=== PATIENT | female | born 1960 | race Caucasian/White ===

== ENCOUNTER 2021-02-12 13:13 | Inpatient (IN) | payer OTHER ==
[2021-02-12 13:45] VITALS: BMI 28.1
[2021-02-12 15:29] LABS: EPI CELLS >36 /uL (0-25.1); HYALINE CASTS 2 /uL (0-3.1); URINE APPEARANCE CLEAR; URINE BACTERIA 226 /uL (0-1359); URINE BILIRUBIN NEGATIVE (NEGATIVE); URINE COLOR DK YELLOW; URINE GLUCOSE (UA) NEGATIVE (NEGATIVE); URINE KETONE NEGATIVE (NEGATIVE); URINE LEUK ESTERASE 2+ (NEGATIVE); URINE NITRITE NEGATIVE (NEGATIVE); URINE PROTEIN NEGATIVE (NEGATIVE); URINE RBC 13 /uL (0-23.9); URINE WBC 74 /uL (0-25.8)
[2021-02-12] MEDS ORDERED: DEXTROSE 5%-LACTATED RINGERS 1,000 ML IV SCH (16:15)
[2021-02-12 16:29] LABS: BASO % 0.3 % (0-2.0); EOS % 0.3 % (0-4.5); HEMATOCRIT 27.8 % (32.4-45.2); HEMOGLOBIN 9.4 GM/dL (10.7-15.3); LYMPH % 18.1 % (8-40); MCHC 33.7 g/dl (32.0-36.0); MEAN PLT VOLUME 7.4 fl (7.5-11.1); MONO % 10.8 % (3.8-10.2); NEUT % 70.5 % (42.8-82.8); PLATELET COUNT 262 K/MM3 (134-434); RBC 3.24 M/mm3 (3.60-5.2); RDW 14.1 % (11.6-15.6); WHITE BLOOD COUNT 5.6 K/mm3 (4.0-10.0)
[2021-02-12 16:36] LABS: INR 0.94 (0.83-1.09); PROTHROMBIN TIME (PATIENT) 11.6 SEC (9.7-13.0)
[2021-02-12 16:37] LABS: VENOUS BASE EXCESS -0.2 mmol/L (-2-2); VENOUS PCO2 40.5 mmHg (38-52); VENOUS PH 7.401 (7.310-7.410)
[2021-02-12 16:39] LABS: ACTIVATED PTT 30.1 SECONDS (25.2-36.5)
[2021-02-12 16:51] LABS: CHLORIDE 93 mmol/L (98-107); SODIUM 128 mmol/L (136-145)
[2021-02-12 16:54] LABS: ALBUMIN 2.6 g/dl (3.4-5.0); CALCIUM 7.9 mg/dL (8.5-10.1)
[2021-02-12 16:55] LABS: ANION GAP 9 MMOL/L (8-16); BLOOD UREA NITROGEN 14.2 mg/dL (7-18); CO2 27 mmol/L (21-32); GLUCOSE,RANDOM 65 mg/dL (74-106); MAGNESIUM 1.5 mg/dL (1.8-2.4)
[2021-02-12 16:57] LABS: SGPT/ALT 68 U/L (13-61)
[2021-02-12 16:58] LABS: CREATININE 0.8 mg/dL (0.55-1.3); SGOT/AST 162 U/L (15-37)
[2021-02-12 16:59] LABS: BILIRUBIN,TOTAL 1.2 mg/dL (0.2-1); TOT PROT 6.1 g/dl (6.4-8.2)
[2021-02-12 17:00] LABS: ALK PHOS 105 U/L (45-117)
[2021-02-12] MEDS ORDERED: CEFTRIAXONE 1 GM in DEXTROSE 5%-WATER - 100 ML IVPB ONE (17:10)
[2021-02-12] MEDS ORDERED: MAGNESIUM SULF 50% (8.12 MEQ/2 ML-1 GM VIAL) IVPB ONE (17:10)
[2021-02-12] MEDS ORDERED: THIAMINE HCL 200 MG/2 ML VIAL IVPB ONE (17:13)
[2021-02-12] MEDS ORDERED: CEFTRIAXONE 1 GM/50 ML BAG ONE (18:19)
[2021-02-12] MEDS ORDERED: THIAMINE HCL 200 MG/2 ML VIAL ONE ×2 (18:19→18:40)
[2021-02-12] MEDS ORDERED: MAGNESIUM 1GM/D5W - 1 GM/100 ML IVPB IVPB ONE (18:19)
[2021-02-12] MEDS ORDERED: ACETAMINOPHEN INJECTION 100 ML IVPB ONE (20:15)
[2021-02-12] MEDS ORDERED: ACETAMINOPHEN 1000 MG/100 ML VIAL (NON FORMULARY) IVPB ONE (20:15)
[2021-02-12] MEDS: DEXTROSE 5%-NORMAL SALINE 1,000 ML IV SCH (21:32)
[2021-02-12] MEDS ORDERED: LORazepam 1 MG TABLET PO PRN (22:31)
[2021-02-12] MEDS ORDERED: AZITHROMYCIN 250 MG TABLET PO ONE (22:42)
[2021-02-12] MEDS ORDERED: ALBUTEROL SO4 HFA INHALER IH PRN (22:45)
[2021-02-13] MEDS ORDERED: AZITHROMYCIN 250 MG TABLET ONE (00:17)
[2021-02-13 00:52] LABS: METHADONE, UR NEGATIVE ng/ml (CUTOFF=300); URINE AMPHETAMINES NEGATIVE ng/ml (CUTOFF=500); URINE BENZODIAZEPINES NEGATIVE ng/ml (CUTOFF=200)
[2021-02-13 00:53] LABS: OPIATES, URI NEGATIVE ng/ml (CUTOFF=300); PHENCYCLIDINE,URINE NEGATIVE ng/ml (CUTOFF=25)
[2021-02-13 01:00] LABS: COCAINE, UR NEGATIVE ng/ml (CUTOFF=300); URINE BARBITURATES NEGATIVE ng/ml (CUTOFF=200)
[2021-02-13] MEDS: INSULIN SLIDING SCALE (NOVOLOG) 1 VIAL SQ SCH ×4 (06:38→21:39)
[2021-02-13 07:14] LABS: EOS % 1.2 % (0-4.5); HEMATOCRIT 28.6 % (32.4-45.2); HEMOGLOBIN 9.6 GM/dL (10.7-15.3); LYMPH % 48.9 % (8-40); MCHC 33.5 g/dl (32.0-36.0); MEAN CELL VOLUME 86.5 fl (80-96); MEAN PLT VOLUME 6.7 fl (7.5-11.1); MONO % 13.9 % (3.8-10.2); PLATELET COUNT 220 K/MM3 (134-434); RBC 3.31 M/mm3 (3.60-5.2); WHITE BLOOD COUNT 3.7 K/mm3 (4.0-10.0)
[2021-02-13 07:36] LABS: ALBUMIN 2.4 g/dl (3.4-5.0); CALCIUM 7.9 mg/dL (8.5-10.1)
[2021-02-13 07:38] LABS: MAGNESIUM 1.6 mg/dL (1.8-2.4)
[2021-02-13 07:39] LABS: CREATININE 0.8 mg/dL (0.55-1.3); PHOSPHOROUS 3.3 mg/dL (2.5-4.9)
[2021-02-13 07:40] LABS: BILIRUBIN,TOTAL 0.7 mg/dL (0.2-1)
[2021-02-13 07:41] LABS: IRON SERUM 36 ug/dL (50-175); TOT PROT 5.8 g/dl (6.4-8.2); TOTAL IRON BINDING CAPACITY 153 ug/dL (250-450)
[2021-02-13] MEDS ORDERED: PT OWN MED DRAWER 7, Y5N ONE ×3 (09:36→21:29)
[2021-02-13] MEDS: ASPIRIN 81 MG CHEWABLE TABLETS PO SCH (09:41)
[2021-02-13] MEDS: POTASSIUM CHLORIDE TABS 20 MEQ TABLET.ER (FP) PO SCH (09:41)
[2021-02-13] MEDS: THIAMINE HCL 100 MG TABLET (FP) PO SCH (09:42)
[2021-02-13] MEDS: GABAPENTIN 300 MG CAPSULE PO SCH (09:42)
[2021-02-13] MEDS: FOLIC ACID 1 MG TABLET (FP) PO SCH (09:43)
[2021-02-13] MEDS: ENOXAPARIN NA (PORCINE) 40 MG/0.4 ML DISP.SYRIN SQ SCH (09:43)
[2021-02-13] MEDS: MAGNESIUM CL 64 MG TABLET.SA PO SCH (10:33)
[2021-02-13] MEDS: carBAMazepine 200 MG TABLET PO SCH ×2 (10:34→21:36)
[2021-02-13] MEDS: DEXTROSE 5%-NORMAL SALINE 1,000 ML IV SCH (16:26)
[2021-02-13] MEDS ORDERED: DEXTROSE 5%-WATER - 50 ML IVPB ONE (17:13)
[2021-02-13] MEDS ORDERED: cefTRIAXone SODIUM 1 GM VIAL ONE (17:13)
[2021-02-13] MEDS: CEFTRIAXONE 1 GM in DEXTROSE 5%-WATER - 50 ML IVPB SCH (17:17)
[2021-02-13] MEDS: AZITHROMYCIN 250 MG TABLET PO SCH (18:24)
[2021-02-14] MEDS: INSULIN SLIDING SCALE (NOVOLOG) 1 VIAL SQ SCH ×4 (06:38→22:43)
[2021-02-14 06:57] LABS: ALBUMIN 2.2 g/dl (3.4-5.0); BLOOD UREA NITROGEN 6.5 mg/dL (7-18); CALCIUM 7.5 mg/dL (8.5-10.1)
[2021-02-14 06:58] LABS: MAGNESIUM 1.3 mg/dL (1.8-2.4)
[2021-02-14 06:59] LABS: BASO % 1.2 % (0-2.0); EOS % 2.6 % (0-4.5); HEMATOCRIT 26.4 % (32.4-45.2); HEMOGLOBIN 9.2 GM/dL (10.7-15.3); LYMPH % 47.8 % (8-40); MCH 30.2 pg (25.7-33.7); MCHC 34.7 g/dl (32.0-36.0); MEAN CELL VOLUME 87.1 fl (80-96); MEAN PLT VOLUME 6.8 fl (7.5-11.1); MONO % 14.2 % (3.8-10.2); NEUT % 34.2 % (42.8-82.8); PLATELET COUNT 200 K/MM3 (134-434); RBC 3.03 M/mm3 (3.60-5.2); RDW 14.2 % (11.6-15.6); WHITE BLOOD COUNT 3.5 K/mm3 (4.0-10.0)
[2021-02-14 07:00] LABS: CREATININE 0.7 mg/dL (0.55-1.3)
[2021-02-14 07:01] LABS: PHOSPHOROUS 2.6 mg/dL (2.5-4.9)
[2021-02-14 07:02] LABS: BILIRUBIN,TOTAL 0.5 mg/dL (0.2-1); TOT PROT 5.2 g/dl (6.4-8.2)
[2021-02-14] MEDS ORDERED: MAGNESIUM SULF 50% (8.12 MEQ/2 ML-1 GM VIAL) IVPB ONE (07:25)
[2021-02-14] MEDS ORDERED: cefTRIAXone SODIUM 1 GM VIAL ONE (07:50)
[2021-02-14] MEDS ORDERED: DEXTROSE 5%-WATER - 50 ML IVPB ONE (07:51)
[2021-02-14] MEDS: CEFTRIAXONE 1 GM in DEXTROSE 5%-WATER - 50 ML IVPB SCH (09:24)
[2021-02-14] MEDS: THIAMINE HCL 100 MG TABLET (FP) PO SCH (09:26)
[2021-02-14] MEDS: GABAPENTIN 300 MG CAPSULE PO SCH (09:26)
[2021-02-14] MEDS: FOLIC ACID 1 MG TABLET (FP) PO SCH (09:26)
[2021-02-14] MEDS: ENOXAPARIN NA (PORCINE) 40 MG/0.4 ML DISP.SYRIN SQ SCH (09:26)
[2021-02-14] MEDS: ASPIRIN 81 MG CHEWABLE TABLETS PO SCH (09:27)
[2021-02-14] MEDS ORDERED: PT OWN MED DRAWER 7, Y5N ONE ×2 (09:31→22:31)
[2021-02-14] MEDS: carBAMazepine 200 MG TABLET PO SCH ×2 (09:32→23:22)
[2021-02-14] MEDS: AZITHROMYCIN 250 MG TABLET PO SCH (09:32)
[2021-02-14] MEDS: MAGNESIUM CL 64 MG TABLET.SA PO SCH (09:41)
[2021-02-14] MEDS: DEXTROSE 5%-NORMAL SALINE 1,000 ML IV SCH (17:14)
[2021-02-14] MEDS: ATORVASTATIN CA 40 MG TABLET (FP) PO SCH (22:41)
[2021-02-14] MEDS ORDERED: ALBUTEROL SO4 0.083% IH SOL 2.5 MG/3 ML VIAL.NEB. NEB ONE (23:25)
[2021-02-15] MEDS: DEXTROSE 5%-NORMAL SALINE 1,000 ML IV SCH (03:00)
[2021-02-15] MEDS: INSULIN SLIDING SCALE (NOVOLOG) 1 VIAL SQ SCH ×4 (06:29→22:25)
[2021-02-15 06:49] LABS: BASO % 1.2 % (0-2.0); EOS % 4.9 % (0-4.5); HEMATOCRIT 26.2 % (32.4-45.2); HEMOGLOBIN 8.9 GM/dL (10.7-15.3); LYMPH % 58.4 % (8-40); MCH 29.9 pg (25.7-33.7); MEAN CELL VOLUME 88.1 fl (80-96); MONO % 13.1 % (3.8-10.2); NEUT % 22.4 % (42.8-82.8); PLATELET COUNT 179 K/MM3 (134-434); RBC 2.98 M/mm3 (3.60-5.2); RDW 14.6 % (11.6-15.6); WHITE BLOOD COUNT 3.1 K/mm3 (4.0-10.0)
[2021-02-15 07:12] LABS: CALCIUM 7.5 mg/dL (8.5-10.1)
[2021-02-15 07:13] LABS: BLOOD UREA NITROGEN 5.3 mg/dL (7-18)
[2021-02-15 07:16] LABS: CREATININE 0.5 mg/dL (0.55-1.3)
[2021-02-15 07:17] LABS: BILIRUBIN,TOTAL 0.4 mg/dL (0.2-1); TOT PROT 5.1 g/dl (6.4-8.2)
[2021-02-15] MEDS ORDERED: cefTRIAXone SODIUM 1 GM VIAL ONE (08:55)
[2021-02-15] MEDS ORDERED: DEXTROSE 5%-WATER - 50 ML IVPB ONE (08:55)
[2021-02-15] MEDS: ENOXAPARIN NA (PORCINE) 40 MG/0.4 ML DISP.SYRIN SQ SCH (09:00)
[2021-02-15] MEDS: FOLIC ACID 1 MG TABLET (FP) PO SCH (09:00)
[2021-02-15] MEDS: CEFTRIAXONE 1 GM in DEXTROSE 5%-WATER - 50 ML IVPB SCH (09:00)
[2021-02-15] MEDS: ASPIRIN 81 MG CHEWABLE TABLETS PO SCH (09:00)
[2021-02-15] MEDS: THIAMINE HCL 100 MG TABLET (FP) PO SCH (09:01)
[2021-02-15] MEDS: GABAPENTIN 300 MG CAPSULE PO SCH (09:01)
[2021-02-15] MEDS ORDERED: PT OWN MED DRAWER 7, Y5N ONE ×2 (09:03→22:11)
[2021-02-15] MEDS: carBAMazepine 200 MG TABLET PO SCH ×2 (10:30→22:24)
[2021-02-15] MEDS: MAGNESIUM CL 64 MG TABLET.SA PO SCH (10:30)
[2021-02-15] MEDS: ATORVASTATIN CA 40 MG TABLET (FP) PO SCH (22:24)
[2021-02-16] MEDS: ACETAMINOPHEN 325 MG TABLET (FP) PO PRN ×2 (05:32→19:46)
[2021-02-16 06:24] LABS: EOS % 4.7 % (0-4.5); HEMATOCRIT 27.6 % (32.4-45.2); HEMOGLOBIN 9.3 GM/dL (10.7-15.3); MCH 29.6 pg (25.7-33.7); MCHC 33.6 g/dl (32.0-36.0); MEAN CELL VOLUME 88.2 fl (80-96); MEAN PLT VOLUME 7.2 fl (7.5-11.1); MONO % 10.3 % (3.8-10.2); PLATELET COUNT 215 K/MM3 (134-434); RBC 3.13 M/mm3 (3.60-5.2); RDW 14.5 % (11.6-15.6); WHITE BLOOD COUNT 3.2 K/mm3 (4.0-10.0)
[2021-02-16 06:48] LABS: CALCIUM 7.7 mg/dL (8.5-10.1)
[2021-02-16 06:49] LABS: BLOOD UREA NITROGEN 3.8 mg/dL (7-18)
[2021-02-16 06:51] LABS: BILIRUBIN,TOTAL 0.4 mg/dL (0.2-1)
[2021-02-16 06:52] LABS: CREATININE 0.5 mg/dL (0.55-1.3)
[2021-02-16] MEDS: INSULIN SLIDING SCALE (NOVOLOG) 1 VIAL SQ SCH ×4 (07:22→21:23)
[2021-02-16] MEDS ORDERED: PT OWN MED DRAWER 7, Y5N ONE ×2 (08:59→21:16)
[2021-02-16] MEDS ORDERED: DEXTROSE 5%-WATER - 50 ML IVPB ONE (08:59)
[2021-02-16] MEDS ORDERED: cefTRIAXone SODIUM 1 GM VIAL ONE (08:59)
[2021-02-16] MEDS: CEFTRIAXONE 1 GM in DEXTROSE 5%-WATER - 50 ML IVPB SCH (09:06)
[2021-02-16] MEDS: carBAMazepine 200 MG TABLET PO SCH ×2 (09:07→21:18)
[2021-02-16] MEDS: GABAPENTIN 300 MG CAPSULE PO SCH (09:07)
[2021-02-16] MEDS: ASPIRIN 81 MG CHEWABLE TABLETS PO SCH (09:07)
[2021-02-16] MEDS: MAGNESIUM CL 64 MG TABLET.SA PO SCH (09:07)
[2021-02-16] MEDS: THIAMINE HCL 100 MG TABLET (FP) PO SCH (09:07)
[2021-02-16] MEDS: FOLIC ACID 1 MG TABLET (FP) PO SCH (09:08)
[2021-02-16] MEDS: ENOXAPARIN NA (PORCINE) 40 MG/0.4 ML DISP.SYRIN SQ SCH (09:08)
[2021-02-16 10:28] LABS: ANISOCYTOSIS 1+; MACROCYTOSIS 0; PLATELET ESTIMATE NORMAL
[2021-02-16] MEDS: ATORVASTATIN CA 40 MG TABLET (FP) PO SCH (21:18)
[2021-02-17] MEDS: ACETAMINOPHEN 325 MG TABLET (FP) PO PRN (01:42)
[2021-02-17] MEDS: INSULIN SLIDING SCALE (NOVOLOG) 1 VIAL SQ SCH ×4 (07:06→21:39)
[2021-02-17 07:37] LABS: BASO % 1.2 % (0-2.0); EOS % 4.1 % (0-4.5); HEMATOCRIT 27.5 % (32.4-45.2); HEMOGLOBIN 9.3 GM/dL (10.7-15.3); LYMPH % 62.8 % (8-40); MCH 29.4 pg (25.7-33.7); MCHC 33.8 g/dl (32.0-36.0); MEAN PLT VOLUME 7.1 fl (7.5-11.1); MONO % 10.7 % (3.8-10.2); NEUT % 21.2 % (42.8-82.8); PLATELET COUNT 265 K/MM3 (134-434); RBC 3.16 M/mm3 (3.60-5.2); RDW 14.1 % (11.6-15.6); WHITE BLOOD COUNT 2.7 K/mm3 (4.0-10.0)
[2021-02-17 07:44] LABS: ALBUMIN 2.1 g/dl (3.4-5.0); BLOOD UREA NITROGEN 3.7 mg/dL (7-18); CALCIUM 7.9 mg/dL (8.5-10.1); MAGNESIUM 1.8 mg/dL (1.8-2.4)
[2021-02-17 07:47] LABS: CREATININE 0.6 mg/dL (0.55-1.3)
[2021-02-17 07:48] LABS: BILIRUBIN,TOTAL 0.4 mg/dL (0.2-1); PHOSPHOROUS 2.4 mg/dL (2.5-4.9); TOT PROT 5.3 g/dl (6.4-8.2)
[2021-02-17] MEDS ORDERED: NAPH,MB-DB/K PH,MBDB POWDER PACKET PO ONE (08:01)
[2021-02-17] MEDS ORDERED: PT OWN MED DRAWER 7, Y5N ONE ×2 (08:47→21:45)
[2021-02-17 08:58] LABS: ANISOCYTOSIS 1+; PLATELET ESTIMATE NORMAL
[2021-02-17] MEDS: ASPIRIN 81 MG CHEWABLE TABLETS PO SCH (09:02)
[2021-02-17] MEDS: ENOXAPARIN NA (PORCINE) 40 MG/0.4 ML DISP.SYRIN SQ SCH (09:03)
[2021-02-17] MEDS: FOLIC ACID 1 MG TABLET (FP) PO SCH (09:03)
[2021-02-17] MEDS: GABAPENTIN 300 MG CAPSULE PO SCH (09:03)
[2021-02-17] MEDS: carBAMazepine 200 MG TABLET PO SCH ×2 (09:03→22:45)
[2021-02-17] MEDS: THIAMINE HCL 100 MG TABLET (FP) PO SCH (09:03)
[2021-02-17] MEDS: MAGNESIUM CL 64 MG TABLET.SA PO SCH (09:04)
[2021-02-17] MEDS ORDERED: cefTRIAXone SODIUM 1 GM VIAL ONE (13:40)
[2021-02-17] MEDS ORDERED: DEXTROSE 5%-WATER - 50 ML IVPB ONE (13:41)
[2021-02-17] MEDS ORDERED: CEFTRIAXONE 1 GM in DEXTROSE 5%-WATER - 50 ML IVPB ONE (13:45)
[2021-02-17] MEDS: ATORVASTATIN CA 40 MG TABLET (FP) PO SCH (21:31)
[2021-02-18] MEDS: INSULIN SLIDING SCALE (NOVOLOG) 1 VIAL SQ SCH ×2 (07:01→11:37)
[2021-02-18] MEDS: ASPIRIN 81 MG CHEWABLE TABLETS PO SCH (09:22)
[2021-02-18] MEDS: GABAPENTIN 300 MG CAPSULE PO SCH (09:23)
[2021-02-18] MEDS: MAGNESIUM CL 64 MG TABLET.SA PO SCH (09:23)
[2021-02-18] MEDS: carBAMazepine 200 MG TABLET PO SCH (09:23)
[2021-02-18] MEDS: ENOXAPARIN NA (PORCINE) 40 MG/0.4 ML DISP.SYRIN SQ SCH (09:23)
[2021-02-18] MEDS: THIAMINE HCL 100 MG TABLET (FP) PO SCH (09:23)
[2021-02-18] MEDS: FOLIC ACID 1 MG TABLET (FP) PO SCH (09:24)
[2021-02-18 14:18] VITALS: BP 121/73; PULSE 94; TEMP 98.7
[2021-02-21 11:08] LABS: METHYLMALONIC ACID- 195 nmol/L (0-378)
== END 2021-02-18 16:54 | DRG 463 ==
LOC: JER 13:13 → JERBED 17:41 → J2W 02-13 04:17 → J4W 02-17 21:00
PROVIDERS: ADMIT Internal Medicine; ATTEND Internal Medicine
DX: N39.0 Urinary tract infection, site not specified (principal); R74.01 Elevation of levels of liver transaminase levels; E83.42 Hypomagnesemia; I10 Essential (primary) hypertension; J45.909 Unspecified asthma, uncomplicated; E78.5 Hyperlipidemia, unspecified; D50.0 Iron deficiency anemia secondary to blood loss (chronic); G71.12 Myotonia congenita; E11.649 Type 2 diabetes mellitus with hypoglycemia without coma; E87.1 Hypo-osmolality and hyponatremia; U07.1 COVID-19; R41.0 Disorientation, unspecified; K70.10 Alcoholic hepatitis without ascites; E87.6 Hypokalemia; K76.0 Fatty (change of) liver, not elsewhere classified; J12.82 Pneumonia due to coronavirus disease 2019
CPT/HCPCS: 36415; 70450-TC; 71045-TC-FY; 72131-TC; 74177-TC; 76700-TC; 76937; 80053; 80307; 81003; 82550; 82607; 82728; 82803; 82962; 83540; 83550; 83605; 83615; 83735; 83921; 84100; 84484; 85025; 85379; 85610; 85730; 86140; 86769; 87040; 87077; 87086; 87899; 93005; 93010; 97116-GP; 97162-GP; 99285-25; C9803; J0131; Q9967; U0003; U0005